=== PATIENT | male | born 1965 | race Two or more races ===

== ENCOUNTER 2018-04-14 11:11 | Emergency (ER) | payer OTHER ==
[2018-04-14 11:20] VITALS: BP 184/117
[2018-04-14] MEDS ORDERED: TDAP ADULT 0.5 ML INJ (BOOSTRIX) IM ONE (11:34)
[2018-04-14] MEDS ORDERED: CEPHALEXIN 500 MG CAP PO ONE (11:43)
--- NOTE | 2018-04-14 11:51 | EDPHY ---
H & P Time Seen by Provider: 04/14/18 11:30 HPI/ROS: CHIEF COMPLAINT: Left hand injury HISTORY OF PRESENT ILLNESS: 52-year-old [id number] male with up-to- date tetanus arrives from his work site after he accidentally hammered his left 2nd 4th and 5th digits, left 2nd being the most significant with partial amputation of the distal phalanx. Pain is controlled. This was accidental. PHYSICAL EXAM (Prior to examination, patient consented to physical exam, hands were washed and my usual and customary physical exam procedures followed) 1) GENERAL: Well-developed, well-nourished, alert and oriented. Appears to be in no acute distress. 2) HEAD: Normocephalic 3) HEENT: sclera anicteric 4) LUNGS: Breathing comfortably. 5) SKIN: Left 2nd digit 50% amputation to the distal phalanx with viable tissue still attached able to cover osseous components. Nail bed laceration noted. Total length of laceration 2.5 cm. Left 4th digit distal phalanx palmar aspect 1.5 cm laceration. 5th distal phalanx abrasions with no underlying osseous discomfort. 6) MUSCULOSKELETAL: FDP FDS intact that affected digits 7) NEUROLOGIC: Full sensation, two-point discrimination intact at all affected digits Smoking Status: Never smoked Constitutional: Initial Vital Signs Temperature (C) 36.7 C 04/14/18 11:17 Heart Rate 71 04/14/18 11:17 Respiratory Rate 18 04/14/18 11:17 Blood Pressure 184/117 H 04/14/18 11:17 O2 Sat (%) 94 04/14/18 11:17 O2 Delivery Mode Room Air Allergies/Adverse Reactions: No Known Allergies Allergy (Unverified 04/14/18 11:20) Home Medications: Medication Instructions Recorded NO HOME MEDS 08/20/09 Cephalexin [Keflex] 500 mg PO TID 7 Days cap 04/14/18 MDM/Departure - MDM Imaging Results: Imaging Impressions Finger X-Ray 04/14/18 11:29 Impression: Open fracture of the tuft of the second digit. Images reviewed myself Procedures: Procedure: Laceration repair. I explained the indications, risks and benefits for both laceration repair and anesthetic administration. Verbal consent was obtained from the patient. The partial amputation on the 2nd digit was anesthetized using 0.5% bupivicaine without epinephrine digital nerve block. After anesthetic administered the patient was observed for a period of time and had no apparent adverse effects. The wound was cleaned, prepped, draped in normal sterile fashion and explored to its base. No foreign body seen, no foreign bodies palpated. The nail removed revealing underlying nail bed laceration which is closed with 3 simple interrupted 5 0 Vicryl sutures. The adjacent skin was closed with a total of 4 simple interrupted 5 O Prolene sutures gently reapproximating skin edges. The nail was reattached at the base. On the patient's 4th digit the distal phalanx palmar laceration was closed with 3 simple interrupted 5 O Prolene sutures. A splint was applied by ER geoscience laboratory technician. The wound repair was complex. The procedure was performed by myself. Patient has been informed that scarring will occur, although efforts have been made to minimize this. Medications Given: Discontinued Medications Cephalexin HCl (Keflex) 500 mg PO EDNOW ONE PRN Reason: Protocol Stop: 04/14/18 11:44 Last Admin: 04/14/18 11:48 Dose: 500 mg Diphtheria/Tetanus/Acell Pertussis (Boostrix) 0.5 ml IM .ONCE ONE Stop: 04/14/18 11:35 Last Admin: 04/14/18 11:45 Dose: 0.5 ml ED Course/Re-evaluation: Patient's tissue was reattached. There is no indication for emergent rongeur at this time as there is adequate tissue to cover osseous components. I stressed the importance of close follow-up with Hand surgery. This is a work comp related injury and therefore recommend he contact his work comp provider 1st. Antibiotic initiated. My usual and customary wound precautions and instructions provided. I saw this patient independently based on established practice protocols. Care of patient under supervision of secondary supervising physician Dr Stephen . - Depart Disposition: Home, Routine, Self-Care Clinical Impression: Partial traumatic transphalangeal amputation of finger Qualifiers: Encounter type: initial encounter Qualified Code(s): S68.629A - Partial traumatic transphalangeal amputation of unspecified finger, initial encounter Condition: Fair Instructions: Finger Amputation (ED) Additional Instructions: Return to the ER if you develop redness, swelling, discharge, warmth to the wound, red streaks going up your arm, or any other symptoms that concern you. Stand Alone Forms: Work Comp Follow Up, Work Excuse Prescriptions: Cephalexin [Keflex] 500 mg PO TID 7 Days cap Referrals: Elizabeth Grewal MD [Medical Doctor] - 1 day without fail Print Language: Maltese
== END 2018-04-14 13:16 | disposition home or self-care (01) ==
PROC: 0HQGXZZ Repair Left Hand Skin, External Approach (ICD-10-PCS; principal; 2018-04-14)
DX: S68.621A Partial traumatic transphalangeal amputation of left index finger, initial encounter (principal); W27.0XXA Contact with workbench tool, initial encounter; Z23 Encounter for immunization; Y92.69 Other specified industrial and construction area as the place of occurrence of the external cause